=== PATIENT | male | born 1995 | race Caucasian/White ===

== ENCOUNTER 2017-06-12 01:27 | Observation (INO) | payer OTHER ==
--- NOTE | 2017-06-12 01:36 | EDPHY ---
H & P Stated Complaint: nausea vomitimng HPI/ROS: HPI CHIEF COMPLAINT: Nausea, vomiting, diarrhea HISTORY OF PRESENT ILLNESS: Patient very pleasant 21-year-old male, otherwise healthy no significant medical history presents emergency room nausea vomiting diarrhea for the past 12 hr. Unable to tolerate p. o.. He denies any fever denies chest pain or shortness of breath denies significant abdominal pain. Main complaint is ongoing nausea with vomiting. Denies urinary symptoms. Denies pain anywhere. Past Medical History: No significant medical Past Surgical History: [place] teeth removal Social History: Denies drugs alcohol tobacco products. [employer] student Family History: Noncontributory ROS REVIEW OF SYSTEMS: A comprehensive 10 point review of systems is otherwise negative aside from elements mentioned in the history of present illness. Exam Constitutional appears nontoxic triage nursing summary reviewed, vital signs reviewed, awake/alert. Eyes normal conjunctivae and sclera, EOMI, PERRLA. HENT normal inspection, atraumatic, moist mucus membranes, no epistaxis, neck supple/ no meningismus, no raccoon eyes. Respiratory clear to auscultation bilaterally, normal breath sounds, no respiratory distress, no wheezing. Cardiovascular rate normal, regular rhythm, no murmur, no edema, distal pulses normal. Gastrointestinal soft, non-tender, no rebound, no guarding, normal bowel sounds, no distension, no pulsatile mass. Genitourinary no CVA tenderness. Musculoskeletal no midline vertebral tenderness, full range of motion, no calf swelling, no tenderness of extremities, no meningismus, good pulses, neurovascularly intact. Skin pink, warm, & dry, no rash, skin atraumatic. Neurologic awake, alert and oriented x 3, AAOx3, moves all 4 extremities equally, motor intact, sensory intact, CN II-XII intact, normal cerebellar, normal vision, normal speech. Psychiatric normal mood/affect. Heme/Lymph/Immune no lymphadenopathy. Differential Diagnosis: Includes but is not limited to in a particular order, viral syndrome, GI illness, enteritis, dehydration, electrolyte disturbance, doubt acute appendicitis given history and physical exam. Medical Decision Making: Plan for this patient IV establishment IV fluid bolus 2 L normal saline for hydration, IV Zofran for nausea, check basic blood work and re-evaluate. Re-evaluation: 0231: Review this pain blood work shows very volume depleted and contracted labs. He appears volume depleted on exam with dry mucous membranes. He has received 2 L fluid here in emergency room is over he states he is feeling better he is still not urinated. Blood work has been reviewed he does have a bicarb, high white count, and H&H at her contracted. This most likely due to volume depletion. I will give him 3rd L fluid here in the emergency room. I have requested a urinalysis as well stool studies. I do not believe this is a presentation of DKA. I believe this presentation of severe dehydration. Will plan on giving him 3rd L fluid. Will admit him to the hospitalist service for dehydration and for observation today. Repeat blood work later today if this corrects can go home and feeling better. Not feel that he needs CT scan as belly is benign. Update patient is old staying. Spoke with the hospitalist service Dr. Schumacher who agrees to admit. Source: Patient - Personal History Current Tetanus/Diphtheria Vaccine: Yes Current Tetanus Diphtheria and Acellular Pertussis (TDAP): Yes - Medical/Surgical History Hx Asthma: No Hx Chronic Respiratory Disease: No Hx Diabetes: No Hx Cardiac Disease: No Hx Renal Disease: No Hx Cirrhosis: No Hx Alcoholism: No Hx HIV/AIDS: No Hx Splenectomy or Spleen Trauma: No Other PMH: denies - Social History Smoking Status: Never smoked Constitutional: Initial Vital Signs Temperature (C) 36.5 C 06/12/17 01:32 Heart Rate 98 06/12/17 01:32 Respiratory Rate 18 06/12/17 01:32 Blood Pressure 149/83 H 06/12/17 01:32 O2 Sat (%) 98 06/12/17 01:32 O2 Delivery Mode Room Air Allergies/Adverse Reactions: No Known Allergies Allergy (Unverified 06/12/17 01:36) Home Medications: Medication Instructions Recorded Ascorbic Acid [Vitamin C 500 mg 500 mg PO DAILY 06/12/17 (*)] Multivitamins [Multivitamin (*)] 1 each PO DAILY 06/12/17 Ondansetron Odt [Zofran Odt 4 mg 4 mg PO Q4HRS PRN #20 tab 06/12/17 (*)] Promethazine HCl [Phenergan 12.5mg 12.5 mg PO Q8 PRN #14 tablet 06/12/17 tab] Ranitidine HCl [Zantac] 150 mg PO DAILY #10 tablet 06/12/17 Medical Decision Making - Data Points Laboratory Results: Laboratory Results 06/12/17 01:48 06/12/17 01:48 Medications Given: Discontinued Medications Sodium Chloride (Ns) 1,000 mls @ 0 mls/hr IV EDNOW ONE; Wide Open PRN Reason: Protocol Stop: 06/12/17 01:38 Last Admin: 06/12/17 01:41 Dose: 1,000 mls Sodium Chloride (Ns) 1,000 mls @ 0 mls/hr IV ONCE ONE PRN Reason: Wide Open Stop: 06/12/17 01:40 Last Admin: 06/12/17 01:42 Dose: 1,000 mls Sodium Chloride (Ns) 1,000 mls @ 0 mls/hr IV ONCE ONE PRN Reason: Wide Open Stop: 06/12/17 02:32 Last Admin: 06/12/17 02:43 Dose: 1,000 mls Sodium Chloride (Ns) 1,000 mls @ 125 mls/hr IV CONT VILLA Stop: 12/09/17 03:44 Last Admin: 06/12/17 12:02 Dose: 1,000 mls Ondansetron HCl (Zofran) 4 mg IVP EDNOW ONE Stop: 06/12/17 01:38 Last Admin: 06/12/17 01:42 Dose: 4 mg Departure - Departure Disposition: [facility] Acute Clinical Impression: Vomiting and diarrhea, Dehydration, Acute kidney injury Condition: Fair
[2017-06-12] MEDS ORDERED: ONDANSETRON 4 MG/2 ML VIAL IVP ONE (01:37)
[2017-06-12] MEDS ORDERED: NS 1,000 ML IV ONE ×3 (01:37→02:31)
[2017-06-12 02:01] LABS: PLATELET COUNT 289 10^3/uL (150-400)
[2017-06-12] MEDS ORDERED: ONDANSETRON 4 MG/2 ML VIAL IVP PRN (02:34)
[2017-06-12] MEDS ORDERED: LORazepam 2 MG/ML INJ IVP PRN (02:34)
[2017-06-12] MEDS ORDERED: METOCLOPRAMIDE 10 MG/2 ML VIAL IVP PRN (02:34)
[2017-06-12] MEDS ORDERED: ACETAMINOPHEN 325 MG TAB PO PRN (02:34)
[2017-06-12] MEDS ORDERED: NS W/ 20 KCl/L 1,000 ML IV SCH (02:45)
[2017-06-12] MEDS: NS 1,000 ML IV SCH ×2 (03:30→12:02)
[2017-06-12 05:21] LABS: PLATELET COUNT 253 10^3/uL (150-400)
--- NOTE | 2017-06-12 07:15 | GHP ---
[f rep st] HISTORY AND PHYSICAL DATE OF ADMISSION: 06/12/2017 Patient's PCP is unassigned. SOURCE: Patient provides history, appears reliable. His EMR was reviewed and case discussed with ED provider. CHIEF COMPLAINT: Nausea, vomiting, and diarrhea. HISTORY OF PRESENT ILLNESS: This is a very pleasant 21-year-old gentleman without significant past m edical history, who presents to the emergency department today with complaints of sudden onset of ext tomás nausea, vomiting, and diarrhea. The patient reports that he has not had any fevers or chills. He has no known sick contacts. He has not had any recent traveling, camping, exposures to andreafski wate r, or change in his diet. 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 The patient reports that he developed intractable nausea, vomiting, and diar michelle. He denies any hematemesis, melena, or hematochezia. He denies any dysuria, hematuria, cough, rhinorrhea, or other viral symptoms. Just prior to arrival, patient continued to have uncontrolled e mesis and diarrhea, which prompted him to come to the emergency department. He also reports that he has developed some mild epigastric left upper quadrant abdominal pain, worse with movement and palpat ion subsequent to all his vomiting. REVIEW OF SYSTEMS: Negative, except as noted as per HPI. ALLERGIES: No known drug allergies. HOME MEDICATIONS: None. PAST MEDICAL HISTORY: Patient denies. PAST SURGICAL HISTORY: Patient denies. FAMILY HISTORY: Negative for IBS, colon cancer, or other GI issues. SOCIAL HISTORY: Patient is a student [facility] [employer]. He denies smoking, drinking, or using drugs. CODE STATUS: Full. PHYSICAL EXAM: VITAL SIGNS: Upon arrival to the emergency department, blood pressure 149/83, heart rate 98, respiratory rate 18, O2 saturation 98% on room air with a temperature of 36.5. Current yoli at time of interview, blood pressure is 131/62, heart rate 83, respiratory rate 17, O2 saturation 99% on room air with temperature 36.9. GENERAL: No acute distress, pleasant young adult gentleman syeda null is lying quietly in bed asleep. He wakes easily to name. HEAD: Normocephalic, atraumatic. EYES : Extraocular muscles are grossly intact. Pupils are equal, round, react to light bilaterally and s ymmetric. No scleral icterus or conjunctival injection. ENT: Mucous membranes appear slightly dry and tacky. No oropharyngeal erythema or exudates. NECK: Supple. Trachea midline. CV: Regular ra te and rhythm with out any murmurs, rubs, or gallops. Patient is without chest wall tenderness to pa lpation. RESPIRATORY: Unlabored breathing. Lungs clear to auscultation bilaterally. No wheezes, r ales, or rhonchi. ABDOMEN: With positive bowel sounds. Soft. Patient with some mild tenderness to palpation in all the epigastric left upper quadrant region without any rebound or guarding. No mass es palpated. : No suprapubic tenderness to palpation. No Marques catheter in place. EXTREMITIES: Patient without any cyanosis, clubbing, or edema appreciated bilaterally. There are 2+ pedal pulses that are symmetric. NEURO: Nonfocal. No facial drooping. Moves all extremities while lying in be d. PSYCH: Patient awake, alert, and oriented x4. Thought process, content, and questions are all a ppropriate. LABORATORY STUDIES: WBC 18.93, H and H is 9.3 and 53.2, MCV of 89.0, platelet count 289, left shift of 94.2% neutrophils, no bandemia. Sodium is 145, potassium 5.3, chloride is 106, CO2 is 16, anion gap 23, BUN 24, creatinine is 1.9, GF R is 45, glucose 203, calcium 10.7, phosphorus 5.6, magnesium pending. Total bilirubin is 1.7, conjugated bilirubin is 1.3, ALT is 51, AST is 38, alkaline phosphatase 95, total protein is 9. 0, albumin 6.0, lipase 45. UA specific gravity 1.025 with a pH of 5.0, negative except for 1-3 BCs, greater than 182 h yaline casts, mucus in the urine 2+, otherwise negative. ASSESSMENT AND PLAN: This is a very pleasant 21-year-old gentleman who presents with complaints of i ntractable nausea, vomiting, and diarrhea. 1. Gastroenteritis, likely viral in nature. The patient has not had any further episodes of nausea, vomiting, or diarrhea since his arrival to the emergency department. There were plans to have patie nt discharged home. However, he did have significant elevation in his laboratory studies, as noted fer villafana. We will plan to collect a sample. Suspect possible norovirus or other such common organism. However, patient has not had any further stool output since his arrival. He is currently on contact precautions prophylactically pending studies. 2. Abdominal pain. It is superficial in nature in the epigastric, left upper quadrant region and is likely musculoskeletal in nature with the patient's recent history of intractable nausea and vomitin g. We will continue to monitor. Abdomen is soft without any distention and positive bowel sounds. 3. Intractable nausea, vomiting, diarrhea without any further symptoms. Patient will have antiemeti cs p.r.n. available. 4. Patient with acute kidney insufficiency with a creatinine 1.9, GFR of 45, which is likely prerena l in nature secondary to patient's severe acute episode of fluid losses in emesis and diarrhea. He h as been unable to sustain re-supplementation. He received several liters in the emergency department . We will plan to continue IV fluid hydration overnight and advance his oral intake as tolerated. 5. Anion gap acidosis, likely related to patient's severe dehydration. Positive lactic acidosis. C ontinue with aggressive IV fluid hydration and plan to repeat a BMP later in the morning. 6. Hyperbilirubinemia. Is likely elevated in setting of acute illness. Will continue to monitor af ter IV hydration. 7. Hypercalcemia with likely component of dehydration. Continue IV fluid hydration. Monitor calciu m. 8. Leukocytosis in setting of acute illness and likely viral source. Continue IV fluid hydration, r epeat in the morning. 9. Polycythemia. It is likely secondary to hemoconcentration in the setting of dehydration. Contin ue with IV fluids and repeat a CBC in the morning. 10. Hyperglycemia. Patient with a notably elevated blood sugar. However, this is a nonfasting lab. No previous history of diabetes. We will plan to repeat a BMP in the morning and monitor glucose. The patient may need additional followup for these episodes of hyperglycemia on an outpatient basis. 11. Fluid, electrolyte, nutrition. IV fluids with lactated Ringer's overnight. Electrolytes will b e monitored and replaced if needed, but potassium will be monitored with IV fluid hydratio n. Diet will be advanced as tolerated. 12. Prophylaxis. Sequential compression devices. Holding anticoagulation secondary to low-risk and a short hospital stay. 13. Code status is full at this time. 14. Disposition. The patient has been admitted to observation on the medical floor at this time in anticipation that given patient's overall healthy status and acute illness that his creatinine should correct fairly rapidly with IV fluid supplementation. /[id number]/MODL
--- NOTE | 2017-06-12 10:50 | HOSPPROG ---
Hospitalist Progress Note Assessment/Plan: Healthy young 21-year-old presents with nausea vomiting diarrhea. He has norovirus. He has not been able to tolerate anything p.o. since admission. # norovirus, continue supportive care. His electrolytes and renal function have improved. When patient can tolerate p.o. he can be discharged. # acute kidney injury secondary to dehydration, slowly improved not quite at baseline will continue to monitor, urinalysis looks fairly bland Subjective: Patient feeling better still has some abdominal discomfort and nausea has not been able to eat much at Objective: Vital Signs Temp Pulse Resp BP Pulse Ox 36.8 C 94 16 121/66 H 100 06/12/17 08:38 06/12/17 08:38 06/12/17 08:38 06/12/17 08:38 06/12/17 08:38 Microbiology 06/12/17 09:07 Gastrointestinal Tract Panel (PCR) - Final Stool Norovirus Gi/Gii Laboratory Results 06/12/17 05:10 06/12/17 05:10 06/11/17 06/12/17 06/13/17 05:59 05:59 05:59 Intake Total 2890 Output Total 520 Balance 2890 -520 - Physical Exam Constitutional: uncomfortable Cardiovascular: regular rate and rhythym Respiratory: no respiratory distress, clear to auscultation Gastrointestinal: tenderness (Mild), No normoactive bowel sounds (Decreased), No guarding, No rebound ICD10 Worksheet Patient Problems: Problems Problem Status Onset Vomiting and diarrhea Acute Dehydration Acute Acute kidney injury Acute
[2017-06-12] MEDS ORDERED: ONDANSETRON DISINTEGRATING 4 MG TAB PO PRN (10:51)
[2017-06-12 15:48] VITALS: BP 123/70; PULSE 95; RESP 20; TEMP 98.1; O2SAT 98
--- NOTE | 2017-06-12 16:05 | ASMTCMCOM ---
CM Note CM Note Notes: Pt admitted with dehydration, n/v/d, positive for norovirus. 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 Anticipate d/c with no CM needs but will continue to follow for any change in needs. Date Signed: 06/12/2017 04:04 PM Electronically Signed By:ALETHA Xiong
--- NOTE | 2017-06-13 11:46 | GDS ---
[f rep st] DISCHARGE SUMMARY DIAGNOSES: 1. Nausea, vomiting, diarrhea secondary to norovirus. 2. Acute kidney injury, resolving. HOSPITAL COURSE: The patient is a 21-year-old, healthy, young man who is admitted with nausea, vomiting, diarrhea. He was quite dehydrated and unable to keep any oral intake in on admission. He went to the emergency department, and was found to have mild electrolyte abnormalities, acute kidney injury with an elevated creatinine of 1.9. He was admitted for observation to the hospital; placed on IV fluids, antiemetics; and, over the course of his hospitalization, he was feeling much better. His electrolytes did normalize with IV fluids, and his renal function improved to a creatinine of 1.2 at the time of discharge. He is able to tolerate small sips of liquid, although still is having some nausea. He will be discharged with antiemetics, and follow up with [facility]. CONDITION ON DISCHARGE: Good. PHYSICAL EXAMINATION: VITAL SIGNS: Have been stable. He has been afebrile. Heart rate 95, blood pressure 123/70. He is 98% on room air. GENERAL: He is a very healthy-appearing 21-year-old in no distress. He is alert and oriented. ABDOMEN: Mildly tender, but no guarding or rebound. DISCHARGE MEDICATIONS: Please see discharge medication form. He was given a small supply of Zofran and Phenergan to be used as needed. FOLLOWUP: He should follow up with [facility] at the end of the week, and should get his blood redrawn to make sure his kidney function continues to improve. /[id number]/MODL MTDD
== END 2017-06-12 18:05 | disposition home or self-care (01) ==
LOC: F1N 03:09
PROVIDERS: ADMIT Family Medicine; ATTEND Internal Medicine
DX: A08.11 Acute gastroenteropathy due to Norwalk agent (principal); K52.9 Noninfective gastroenteritis and colitis, unspecified; N17.9 Acute kidney failure, unspecified; E86.0 Dehydration; E87.2 Acidosis; E83.52 Hypercalcemia; D72.829 Elevated white blood cell count, unspecified; R73.9 Hyperglycemia, unspecified; D75.1 Secondary polycythemia; E80.6 Other disorders of bilirubin metabolism
CPT/HCPCS: G0378 ×2; 96374

== ENCOUNTER → 2017-11-13 | Outpatient (CLI) | payer OTHER | LOC: BMCIMAGING 15:27 | PROVIDERS: ATTEND Orthopaedic Surgery Hand Surgery | DX: M25.522 Pain in left elbow (principal) ==